=== PATIENT | male | born 1940 | race Caucasian/White ===

== ENCOUNTER 2018-05-29 08:14 | Emergency (ER) | payer MEDICARE ==
[~2018-05-29] VITALS: Ht 188 cm; Wt 84.1 kg
[2018-05-29 08:18] VITALS: Ht 188 cm; Wt 84.1 kg
[2018-05-29] MEDS ORDERED: [UNRECOGNIZED DRUG - REMARK] (08:21)
[2018-05-29 10:13] VITALS: BP 142/86
== END 2018-05-29 10:14 | disposition home or self-care (01) ==
LOC: D.ER 08:14
DX: R33.9 Retention of urine, unspecified (principal); G40.909 Epilepsy, unspecified, not intractable, without status epilepticus; I10 Essential (primary) hypertension

== ENCOUNTER 2018-06-29 09:59 | Day surgery (SDC) | payer MEDICARE ==
[~2018-06-29] VITALS: Ht 188 cm; Wt 84.8 kg
--- NOTE | ~2018-06-29 | OP ---
PATIENT NAME: TERESSA CEE MEDICAL RECORD: [id number] :42 [facility] AD[facility] DATE: SURGEON: THA GRUBER MD DATE OF OPERATION: 06/29/2018 SURGEON: Tha Gruber MD ANESTHESIA: TIVA by Dr. Go Mcdaniels. DIAGNOSIS: Obstructive BPH with acute urinary retention. PROCEDURE: Cystoscopy, UroLift device implantation times 4 units. FINDINGS: Bilateral lateral lobe hyperplasia. Single ureteral orifices bilaterally. No bladder tumors. IPSS score was 10. Nkshpfy-xh-oqrl score was 2 prior to going into urinary retention and a 60-gram prostate on PERFECTO. BLOOD LOSS: None. CLINICAL HISTORY: This is a 77-year-old male, who came to the Emergency Room with acute urinary retention. He has had an indwelling Hair catheter placed at that time. Prior to the catheterization, he thought he was voiding all right. He had nocturia times 3-4 and he had no daytime urinary urgency or frequency. Even told that he has had BPH for 6-7 years. He has been taking herbal supplements, but he has not been taking any medications for BPH. Five years ago in [place], [place], he had a prostate biopsy for an elevated PSA. The biopsy was benign. On digital rectal examination, he has an enlarged prostate of 60 grams. He comes today for the UroLift procedure. He is not allergic to any medications. He was given Ancef conservation agent to the OR. DESCRIPTION OF PROCEDURE: The patient was given IV sedation. He was then placed into dorsal lithotomy position. His indwelling Hair catheter was removed. He was then prepped and draped. Cystoscopy was performed using the UroLift scope. The lateral lobes are obstructive. He has no significant median lobe. There are single ureteral orifices bilaterally and there are no bladder tumors. At 2 cm distal to the bladder neck, we inserted a UroLift device in each lateral lobe in the anterior portion of the lateral lobe. We then placed 2 more devices at the level of the verumontanum with 1 device being placed on each side in the anterior portion of the lateral lobes. These 4 devices opened up the prostatic urethra very much. He is no longer obstructed. The bladder was then emptied through the scope and the scope was removed. A 16-Tajik Hair catheter was then placed back into the bladder for drainage. I will be seeing him in followup in 2 days' time for a voiding trial. TRANSINT:[id number] Voice Confirmation ID: [id number] DOCUMENT ID: [id number] THA GRUBER MD at 1333 CC: [id number] DICTATION DATE: 06/29/18 1224 WESTERN PHILOSOPHY PROFESSOR: 06/29/18 1308 [facility] [address] [id number]
[~2018-06-29 09:59] MED LIST: TEGRETOL XR200 M1 PO; [UNRECOGNIZED DRUG - REMARK]
[2018-06-29 10:27] LABS: HEMATOCRIT 40.1 % (42.0-54.0); HEMOGLOBIN 13.9 g/dL (13.5-17.5); MCH 32.3 pg (26.0-34.0); MCHC 34.7 g/dL (31.0-37.0); MEAN PLATELET VOLUME 9.3 fL (7.4-10.4); RBC 4.31 10x6/uL (4.20-6.10); RDW 12.6 % (11.5-14.5); WBC 4.9 10x3/uL (4.8-10.8)
[2018-06-29 10:54] VITALS: BP 155/89; Ht 188 cm; Wt 84.8 kg
== END 2018-06-29 14:15 | disposition home or self-care (01) ==
LOC: D.OPS 09:59 → D.PAN 13:10 → D.OPS 13:10 → D.PAN 13:30 → D.OPS 14:15 → D.PAN 17:10 → D.OPS 17:10
PROVIDERS: Anesthesiology
DX: N40.1 Benign prostatic hyperplasia with lower urinary tract symptoms (principal); N13.8 Other obstructive and reflux uropathy; R33.8 Other retention of urine; R35.1 Nocturia; Z01.812 Encounter for preprocedural laboratory examination

== ENCOUNTER 2018-07-07 09:35 | Emergency (ER) | payer MEDICARE ==
[~2018-07-07] VITALS: Ht 188 cm; Wt 83.9 kg
[2018-07-07 09:38] VITALS: Ht 188 cm; Wt 83.9 kg
[2018-07-07 10:38] LABS: APPEARANCE CLOUDY (CLEAR); BACTERIA MANY /hpf (NONE SEEN); BILIRUBIN NEGATIVE (NEGATIVE); COLOR YELLOW (YELLOW); EPITHELIAL CELLS 0-5 /hpf (0-5); GLUCOSE NEGATIVE (NEGATIVE); KETONE NEGATIVE (NEGATIVE); MUCUS <1+ /lpf (NONE SEEN); NITRITE POSITIVE (NEGATIVE); PROTEIN TRACE mg/dL (NEGATIVE); RED CELLS - URINE 0-5 /hpf (0-5); UROBILINOGEN NORMAL (NORMAL); WHITE CELLS - URINE 25-50 /hpf (0-5)
[2018-07-07] MEDS ORDERED: LEVAQUIN750 MG PO (11:18)
[2018-07-07 13:30] VITALS: BP 187/86
== END 2018-07-07 13:25 | disposition home or self-care (01) ==
LOC: D.ER 09:35
PROVIDERS: Family Medicine
DX: N39.0 Urinary tract infection, site not specified (principal); I10 Essential (primary) hypertension; G40.909 Epilepsy, unspecified, not intractable, without status epilepticus